=== PATIENT | female | born 1995 | race African-American/Black ===

== ENCOUNTER 2017-08-08 00:20 | Emergency (ER) | payer SELFPAY ==
[2017-08-08 00:33] VITALS: BP 134/78; PULSE 68; RESP 15; TEMP 97.9; O2SAT 100
== END 2017-08-08 01:49 | disposition left against medical advice (07) ==
LOC: NED 00:20
DX: Z53.21 Procedure and treatment not carried out due to patient leaving prior to being seen by health care provider (principal)
CPT/HCPCS: 99281